=== PATIENT | male | born 1940 | race Caucasian/White ===

== ENCOUNTER 2020-12-12 12:13 | Emergency (ER) | payer OTHER ==
[~2020-12-12] VITALS: Ht 149.9 cm; Wt 62.6 kg
[2020-12-12 12:45] VITALS: BP 156/71
--- NOTE | 2020-12-12 12:45 | NUR ---
Inna tong in ED - 12/12/20 at 1346 by [email or web address] PT TAKEN TO CT VIA [facility]
--- NOTE | 2020-12-12 13:01 | NUR ---
PT RETURNED TO BED [address] [facility] [facility]
--- NOTE | 2020-12-12 13:12 | NUR ---
80 Y MALE BIBA C/O HEAD LAC WOUND, RIGHT EAR BLEEDING S/P FALL X TODAY. PT STATED HE WAS CUTTING TREES AND FELL 6FT TODAY. PT DENIES ANY LOC, BLURRED VISION, CHEST PAIN, OR MAGUIRE AT THIS TIME. PT MAIN COMPLAINT IS R SHOULDER PAIN IT BROKE HIS FALL. LACERATION NOTED ON PT HEAD AND BLEEDING NOTED FROM R EAR. NO BRUSISING NOTED ON SHOULDER. PERRLA INTACT, [employer]NAGER STRENGTH EQUAL BILTERALLY. PT DENIES ANY TROUBLE MOVING UE/LE. PT DENIES ANY HEARING LOSS PMH: HTN NKA
--- NOTE | 2020-12-12 13:35 | NUR ---
DR. GONSALEZ BEDSIDE EVALUATING PT
--- NOTE | 2020-12-12 13:45 | NUR ---
PT TAKEN TO XRAY VIA [facility]
--- NOTE | 2020-12-12 13:46 | NUR ---
XRAY BEDSIDE WITH PATIENT
[2020-12-12] MEDS ORDERED: ACET-8386 PO (14:09)
[2020-12-12] MEDS ORDERED: IBUP-2213 PO (14:09)
--- NOTE | 2020-12-12 14:14 | NUR ---
PER ERMD PT EAR WAS IRRAGATED WITH SALINE AND AFTERWARD PT ARM WAS PLACE IN A SLING.
[2020-12-12] MEDS ORDERED: HYDROcodone/APAP 5/325 MG 1 TAB TAB PO ONE (14:20)
[2020-12-12] MEDS ORDERED: MORPHINE SULFATE 4 MG/ML SYR IM ONE (14:25)
[2020-12-12] MEDS ORDERED: MORPHINE SULFATE 4 MG/ML SYR ONE (14:28)
--- NOTE | 2020-12-12 14:41 | NUR ---
PT PROVIDED WITH SANDWHICH, PUDDING, AND JUICE BEDSIDE. PT PROVIDED WITH MORPHINE SHOT. WILL REASSESS PAIN
--- NOTE | 2020-12-12 15:05 | NUR ---
PT STATED PAIN RELIEF FROM THE MORPHINE SHOT. PT REQUEST TO GO HOME AND REST NOW
[2020-12-12 15:06] VITALS: BP 132/60
--- NOTE | 2020-12-12 15:07 | NUR ---
Patient discharged with v/s stable. Written and verbal after care instructions given and explained. Patient alert, oriented and verbalized understanding of instructions. Wheel Chair Assisted with steady gait. All questions addressed prior to discharge. ID band removed. Patient advised to follow up with PMD. Rx of IBUPROFEN AND HYDROCODONE/ACETAMINOPHEN given. Patient educated on indication of medication including possible reaction and side effects. Opportunity to ask questions provided and answered.
== END 2020-12-12 15:06 | disposition home or self-care (01) ==
LOC: MED 12:13
DX: S42.001A Fracture of unspecified part of right clavicle, initial encounter for closed fracture (principal); S22.41XA Multiple fractures of ribs, right side, initial encounter for closed fracture; S01.311A Laceration without foreign body of right ear, initial encounter; S09.90XA Unspecified injury of head, initial encounter; I10 Essential (primary) hypertension; Z79.899 Other long term (current) drug therapy; Z98.890 Other specified postprocedural states; W17.89XA Other fall from one level to another, initial encounter; Y93.89 Activity, other specified; Y92.89 Other specified places as the place of occurrence of the external cause; Y99.8 Other external cause status
CPT/HCPCS: 70450; 73030; 96372; 99284; J2270; Q0092